=== PATIENT | male | born 1975 | race Hispanic/Latino ===

== ENCOUNTER 2022-03-26 13:33 | Observation (INO) | payer OTHER, SELFPAY ==
[2022-03-26] VITALS (26 sets, daily range): BP systolic 134–185; BP diastolic 76–110; PULSE 68–97; RESP 16–31; TEMP 36.3–36.6; O2SAT 93–100; BMI 38.2
--- NOTE | ~2022-03-26 | CT_ITS ---
EXAMINATION: CTA brain carotid DATE: 03/26/2022 14:56 INDICATION: Dizziness. Dysphagia. TECHNIQUE: Computed tomographic angiography (CTA) of the head was performed without and with 100 mL O mnipaque-350 intravenous contrast. CTA of the neck was performed with intravenous contrast. Automated exposure control and iterative reconstruction technique were employed. The dose-length product was 1 827.21 mGy-cm. Maximum intensity projection and volume rendered 3D-reconstructions were created by teresa alfaro technologist on a separate workstation. COMPARISON: None. FINDINGS: HEAD CTA: There is no intracranial hemorrhage, acute infarction, or abnormal intracranial mass lesion . The ventricles are normal in size. The orbits are normal. The paranasal sinuses are clear. The mast oid air cells are normal. Left vertebral artery is dominant. There is no significant stenosis of basi lar artery or the posterior cerebral arteries. There is no significant stenosis of the intracranial i nternal carotid arteries or anterior or middle cerebral arteries. Anterior communicating artery is no rmal. Posterior communicating arteries are not identified. There is no aneurysm. NECK CTA: There is no significant stenosis of the vertebral arteries. There is mild plaque in the pro ximal internal carotid arteries. There is 0% stenosis of the proximal right internal carotid artery r elative to normal distal artery lumen diameter (NASCET criteria). There is 0% stenosis of the proxima l left internal carotid artery relative to normal distal artery lumen diameter. There is mild cervica l spondylosis. IMPRESSION: 1. Normal brain. No aneurysm or significant intracranial arterial stenosis. 2. 0% stenosis of the proximal internal carotid arteries relative to normal distal artery lumen diame ters (NASCET criteria). Reviewed, dictated and finalized at location A. [facility] [facility] IMPRESSION: 1. Normal brain. No aneurysm or significant intracranial arterial stenosis. 2. 0% stenosis of the proximal internal carotid arteries relative to normal dis joellen artery lumen diameters (NASCET criteria).
--- NOTE | ~2022-03-26 | MR_ITS ---
MRI of the brain Clinical History: TIA Technique: Axial and sagittal T1-weighted images were acquired. These were followed by axial T2-weigh jose, diffusion weighted, gradient, and FLAIR images. Following intravenous administration of 20 cc Mu ltiHance gadolinium, T1-weighted fat-sat imaging was performed in the axial and coronal planes. Findings: No significant signal abnormality seen in the brain parenchyma. No acute infarct, intracran ial hemorrhage, or mass lesion. Ventricles and subarachnoid spaces are unremarkable. Orbits are unremarkable. Paranasal sinuses and m astoid air cells are clear. Major intracranial flow voids appear intact. Sagittal midline structures are intact. No abnormal postcontrast enhancement identified. IMPRESSION: Unremarkable exam. Reviewed, dictated and finalized at location M. [facility] IMPRESSION: Unremarkable exam.
--- NOTE | ~2022-03-26 | XR_ITS ---
EXAMINATION: XR chest 2V DATE: 03/26/2022 14:57 INDICATION: Shortness of breath and dizziness TECHNIQUE: PA and lateral views of the chest are obtained. COMPARISON: None available FINDINGS: There are minimal airspace opacities of the left lung base. No pleural effusion or pneumoth orax. The cardiomediastinal silhouette is normal. The visualized bones and soft tissues are unremarka ble. IMPRESSION: 1. Minimal left basilar airspace opacity, likely atelectasis. Reviewed, dictated and finalized at location B. Y TRUCK DRIVER
--- NOTE | 2022-03-26 13:41 | ECG_ITS ---
Measurements Intervals [place] Rate: 80 P: 31 WA: 163 QRS: -1 QRSD: 105 T: 13 QT: 376 QTc: 436 Interpretive Statements SINUS RHYTHM BASELINE ARTIFACT PRESENT NO PREVIOUS ECG AVAILABLE FOR COMPARISON Electronically Signed On 03-26-2022 15:08:03 CEMENT FINISHER HELPER by Maryjo Holman M.D.
[2022-03-26 14:07] LABS: Basophils Percent Auto 0.6 % (0.2-1.2); Eosinophils Absolute Auto 0.1 K/mm3 (0-0.3); Eosinophils Percent Auto 1.1 % (0-4.4); Hemoglobin 16.6 g/dL (14.0-18.0); Immature Granulocyte Absolute 0.01 K/mm3 (0.00-0.031); Immature Granulocyte Percent A 0.2 % (0-0.5); Lymphocytes Percent Auto 40.6 % (18.3-44.2); Mean Corpuscular HGB Conc 33.9 g/dl (32-36); Mean Corpuscular Hemoglobin 31.6 pg (26-34); Mean Corpuscular Volume 93.3 fl (80-100); Mean Platelet Volume 10.2 fl (7.4-10.4); Monocytes Absolute Auto 0.8 K/mm3 (0.1-0.6); Neutrophils Absolute Auto 2.9 K/mm3 (1.3-6.7); Neutrophils Percent Auto 45.5 % (45.5-73.1); Platelet Count Result 226 k/mm3 (150-375); Red Blood Count 5.25 M/mm3 (4.6-6.20); Red Cell Distribution Width 12.4 % (11.5-14.5); White Blood Count 6.4 K/mm3 (4.5-10.0)
[2022-03-26 14:17] LABS: Alanine Aminotransferase 111 U/L (6-50); Albumin Level 4.9 g/dL (3.5-5.1); Alkaline Phosphatase 77 U/L (38-126); Anion Gap 10 mmol/L (8-16); Aspartate Amino Transferase 79 U/L (17-59); Bilirubin,Total 1.1 mg/dL (0.2-1.3); Blood Urea Nitrogen 11 mg/dL (9-20); Calcium 9.4 mg/dL (8.4-10.2); Carbon Dioxide 22 mmol/L (22-30); Chloride 102 mmol/L (98-107); Estimated CRCL calculation 163 ml/min; Estimated Glomerular Filt Rate > 60; Glucose 106 mg/dL (65-110); Lipase 127 U/L (23-300); Potassium 3.6 mmol/L (3.4-5.0); Sodium 134 mmol/L (137-145)
[2022-03-26] MEDS: SODIUM CHLORIDE 0.9% IV 1,000 ML 999 ML IV CONT (14:22)
[2022-03-26] MEDS: ASPIRIN 81 MG CHEWABLE TABLET 324 MG PO (14:22)
[2022-03-26 14:29] LABS: Troponin I < 0.012 ng/mL (0.000-0.034)
[2022-03-26 14:30] LABS: Prothrombin Time 12.9 Seconds (11.1-14.7)
[2022-03-26 14:31] LABS: Partial Thromboplastin Time 30.4 SECONDS (22.3-36.8)
--- NOTE | 2022-03-26 14:37 | ED.GENADULT ---
HPI - General Adult General Chief complaint: Dizziness Stated complaint: dizzy/sob Time Seen by Provider: 03/26/22 13:54 History of Present Illness HPI narrative: This is a 46-year-old male presenting ED with a chief complaint of dizziness and shortness of breath. Patient stated that at 11:00 a.m. he started to experience a feeling of disequilibrium or loss of balance. He was at work when it happened. When he was trying to tell his boss he was having trouble finding words. He denies difficulty swallowing, loss of coordination or double vision. Denies numbness tingling weakness to any extremity. The symptoms have since resolved. However the patient also notes that he is having shortness of breath and has 3-4 word dyspnea. He denies chest pain, fever, chills, lower extremity edema, hx of blood clots. Related Data Home Medications Medication Instructions Recorded Confirmed atorvastatin 20 mg tablet mg 03/26/22 lisinopril 10 mg tablet mg 03/26/22 03/26/22 Allergies Allergy/AdvReac Type Severity Reaction Status Date / Time No Known Allergies Allergy Verified 03/26/22 14:12 Review of Systems Review of Systems: All systems reviewed & are unremarkable except as noted in HPI and below PMFSH Past Medical History Medical History (Updated 03/26/22 @ 17:54 by Jorge Ballard MD) High cholesterol Hypertension Social History Social History (Updated 03/26/22 @ 14:43 by Jorge Ballard MD) Social History: patient drinks alcohol and uses marijuana occasionally, denies tobacco use Exam Narrative: APPEARANCE: No apparent distress. Head: atraumatic. EYES: EOMI, pupils are lana NOSE: Atraumatic NECK: Trachea midline RESPIRATORY: No increased rate of breathing clear to auscultation bilaterally CARDIOVASCULAR: RRR, no peripheral edema ABDOMINAL: Non-distended MUSCULOSKELETAl: No obvious deformities NEURO: Alert. Cranial nerves 2-12 grossly intact. Sensation light touch, motor function cerebellar function intact for 4 extremities. Gait exam was normal. SKIN:: Warm, dry. Normal color PSYCHIATRIC: Normal affect Course Vital Signs Vital signs: Vital Signs Temperature 97.9 F 03/26/22 13:39 Pulse Rate 85 03/26/22 13:39 Respiratory Rate 16 03/26/22 13:39 Blood Pressure 185/103 H 03/26/22 13:39 Pulse Oximetry 100 03/26/22 13:39 Oxygen Delivery Room Air 03/26/22 13:39 Temperature 97.9 F 03/26/22 13:39 Pulse Rate 78 03/26/22 17:32 Respiratory Rate 21 H 03/26/22 17:31 Blood Pressure 145/91 H 03/26/22 17:31 Pulse Oximetry 96 03/26/22 17:31 Oxygen Delivery Room Air 03/26/22 13:39 Medical Decision Making [facility] Narrative Medical decision making narrative: -Presentation: this is a 46-year-old male presenting with disequilibrium, word-finding difficulty and shortness of breath. The patient's neurologic findings are concerning for TIA/CVA. is also having some dyspnea on exam. His lung sounds are clear. Have ordered a CTA of the neck and head which should show if there is any evidence of dissection. Will also get basic lab work, EKG, chest x-ray, BNP and troponins. -DDX includes but is not limited to: CVA/ TIA, vertebral artery stenosis/ dissection, heart failure, pneumonia, pulmonary embolism -Co-morbidities complicating care: hypertension, hyper cholesterolemia -External Chart Review: none -Hx from independent Sources: - [facility] - [phone] -Discussion of Management/Consultants: Koki GROUP LEADER-hospitalist, Neurology -Independent interpretation of studies: CTA of the brain carotid was negative for any findings. Laboratory studies were within normal limits. Viral swabs were negative Chest x-ray showed possible atelectasis. CBC was unremarkable. Metabolic panel is unremarkable. D-dimer was 0.44, troponin and BNPs were normal. -Procedures: none -Interventions: ASA 325 mg, 1 L NS. -Shared decision making / Disposition: upon re-evaluation
[2022-03-26 15:35] LABS: NT Pro B Type Natriuretic Pept < 20 pg/mL (19.9-100)
[2022-03-26 15:40] LABS: D Dimer 0.44 ug/mL (<0.48)
[2022-03-26 16:57] LABS: Influenza A QL RT-PCR Negative (Negative); Influenza B QL RT-PCR Negative (Negative); SARS-CoV-2 RNA PCR Negative
[2022-03-26 17:26] LABS: Troponin I < 0.012 ng/mL (0.000-0.034)
--- NOTE | 2022-03-26 18:09 | PM.IMHP ---
H&P: HPI History of Present Illness Date/Time: 03/26/22 18:09 Chief Complaint: Dizziness Narrative: This is a 46-year-old male patient has a history of hypertension hyperlipidemia. The patient came to the ER today with complaints of dizziness and shortness of breath. The patient started a keto diet within the last week and did not eat anything this morning. The patient stated at 11:00 a.m. he had a feeling of disequilibrium or loss of balance. The patient was at work when this happened. The patient was trying to tell his boss something but then he lost his words. The patient had no focal weakness or any facial droop. The symptoms have resolved since then. No focal weakness. The patient is now talking in full sentences. The chest x-ray was read as minimal left basilar airspace opacities likely atelectasis. Head neck CTA was read as normal brain no aneurysm or significant intracranial arterial stenosis. 0% stenosis of the proximal internal carotid arteries relative to normal distal arterial lumen diameters. The patient was given aspirin and IV fluids in the emergency room. The patient was found to be negative for influenza A/B and COVID. The patient is being admitted to observation status on the date of service of 03/26/2022 Review of Systems Review of Systems: See HPI All systems reviewed & are unremarkable except as noted in HPI and below Constitutional: Constitutional: Reports as per HPI and Reports no additional constitutional complaints Eyes: Eyes: Reports as per HPI and Reports no additional eye complaints ENT: Reports system reviewed and no additional complaints, except as documented and Reports Normal hearing present Cardiovascular: Cardiovascular: Reports no additional cardiovascular complaints Respiratory: Respiratory: Reports no additional respiratory complaints and Reports no additional respiratory complaints Gastrointestinal: Gastrointestinal: Reports as per HPI and Reports no additional gastrointestinal complaints Musculoskeletal: Musculoskeletal: Reports no additional musculoskeletal complaints Integumentary/Breasts: Skin/Breast: Reports system reviewed and no additional complaints, except as docu and Reports as per HPI Neurologic: Reports system reviewed and no additional complaints, except as documented, Reports as per HPI and Reports Normal hearing present Psychiatric: Psychiatric: Reports no additional psychiatric complaints and Reports as per HPI Endocrine: Endocrine: Reports no additional endocrine complaints Hematologic/Lymphatic: Hematologic/Lymphatic: Reports no additional hematologic/lymphatic complaints Allergic/Immunologic: Allergic/Immunologic: Reports no additional allergic/immunologic complaints [facility] Past Medical History Medical History High cholesterol Hypertension Surgical History Surgical History (Updated 03/26/22 @ 23:24 by Koki Lux NP) No pertinent past surgical history Family History Family History Mother Diabetes mellitus Father Hypertension Sibling Hyperlipidemia Social History Social History (Updated 03/26/22 @ 23:25 by Koki Lux NP) Social History: The patient drinks alcohol and uses marijuana occasionally. He Denies tobacco use currently but is a former smoker. He Lives with his . They have a 9 year old . The patient works for [employer]. Code status full code Smoking packs per day: 1 Smoking cigarettes per day: 20.0 Years smoked: 5 Smoking pack-years: 5.00 Smoking status: Former smoker Tobacco type: cigarettes Second hand tobacco smoke exposure: Yes Alcohol intake: current Drinks per week: 7 Substance use: never Lack of Transportation: No Lack of Food: Never True Current Housing: I Have Housing Concerned About Future Housing: No Difficulty Paying Gas/Electric Bills: No Difficulty Paying f
--- NOTE | 2022-03-26 19:57 | ADMGEN ---
This patient, Alex Gray, was admitted to Medical Room 243-. Patient/family oriented to hospital policies and general routines including ID bracelet, bed and alarms, visiting hours, pain management, procedures, bathroom and other care routines, personal items, smoking policy, room service/diet, and visiting hours. Information on how to activate the Rapid Response Team has been discussed. Patient/Family are encouraged to report perceived risks to care and to ask questions if they do not understand what they are told or what they should do.
[2022-03-26 20:22] LABS: Troponin I < 0.012 ng/mL (0.000-0.034)
[2022-03-26] MEDS: LACTATED RINGERS 1,000 ML 125 ML IV CONT (22:21)
--- NOTE | 2022-03-27 | ECHO_ITS ---
Patient Info Name: Alex Gray Age: 46 years : 1975 Gender: Male Ht: 73 in Wt: 284 lbs BSA: 2.62 m2 HR: 64 bpm BP: 134 / 76 mmHg Technical Quality: Good Exam Date: 03/27/2022 9:54 AM Exam Location: [facility] Patient Status: Outpatient Admit Date: 03/26/2022 Staff Ordering Physician: Koki Lux NP Home Health Physical Therapist: Donal Dean RDCS, RT Attending Provider: Shlomo Wright MD Referring Physician: Maci STEARNS; Exam Type: CA echo dop bubble study w con Study Info Indications G45.8 - Other transient cerebral ischemic attacks and related syndromes R06.02 - Shortness of breath Complete two-dimensional, color flow and Doppler transthoracic echocardiogram is performed with contrast to opacify the left ventricle and to improve the deliniation of the left ventricle endocardial borders. Strain analysis performed. Summary 1. Left ventricular chamber dimension is normal. 2. Left ventricular systolic function is normal, estimated at 60-65%. 3. There is mildly increased left ventricular wall thickness. 4. E/e' 7 is not elevated. 5. Global longitudinal strain is abnormal at -14.6%. 6. There is trace tricuspid valve regurgitation. Left Ventricle Global longitudinal strain is abnormal at -14.6%. E/e' 7 is not elevated. Left ventricular chamber dimension is normal. Left ventricular systolic function is normal, estimated at 60-65%. There is mildly increased left ventricular wall thickness. Right Ventricle Right ventricular systolic function is normal and with normal TAPSE 2.5 cm. Right ventricular chamber dimension is normal. Left Atria Left atrial chamber dimension is normal. Right Atria Right atrial chamber dimension is normal. Atrial Septum Agitated saline injection with and without valsalva maneuver opacified right side cardiac chambers without obvious shunt to left side cardiac chambers. Intact interatrial septum visualized by 2D and agitated saline imaging. Aortic Valve The aortic valve is trileaflet. There is no aortic valve stenosis. There is no aortic valve regurgitation. Pulmonic Valve There is no pulmonic regurgitation. Mitral Valve There is no mitral valve stenosis. There is trace mitral valve regurgitation. Tricuspid Valve There is trace tricuspid valve regurgitation. RVSP is not calculated due to an inadequate TR jet. Pericardium/Pleural There is no pericardial effusion. Inferior Vena Cava Normal inferior vena cava with >50% collapse upon inspiration consistent with normal right atrial pressure, 5 mmHg. Aorta The aortic root size at the sinus of Valsalva is normal. Left Ventricular Outflow Tract Name Value Normal LVOT 2D LVOT Diameter 2.2 cm LVOT Doppler LVOT Peak Gradient 4 mmHg LVOT Mean Gradient 2 mmHg LVOT VTI 20 cm LVOT VTI/AV VTI Ratio 0.8 LVOT Stroke Volume 77 ml LVOT CO 5.6 l/min LVOT CI 2.2 l/min/m2 Mitral Gita
[2022-03-27 05:25] LABS: Basophils Absolute Auto 0.1 K/mm3 (0.0-0.1); Basophils Percent Auto 0.9 % (0.2-1.2); Eosinophils Absolute Auto 0.3 K/mm3 (0-0.3); Eosinophils Percent Auto 3.6 % (0-4.4); Hematocrit 45.6 % (42.0-52.0); Hemoglobin 14.8 g/dL (14.0-18.0); Immature Granulocyte Absolute 0.02 K/mm3 (0.00-0.031); Immature Granulocyte Percent A 0.3 % (0-0.5); Lymphocytes Absolute Auto 2.99 K/mm3 (0.9-3.2); Lymphocytes Percent Auto 38.7 % (18.3-44.2); Mean Corpuscular HGB Conc 32.5 g/dl (32-36); Mean Corpuscular Hemoglobin 31.9 pg (26-34); Mean Corpuscular Volume 98.3 fl (80-100); Mean Platelet Volume 10.7 fl (7.4-10.4); Monocytes Absolute Auto 0.9 K/mm3 (0.1-0.6); Monocytes Percent Auto 11.1 % (2.6-8.5); Neutrophils Absolute Auto 3.5 K/mm3 (1.3-6.7); Neutrophils Percent Auto 45.4 % (45.5-73.1); Platelet Count Result 199 k/mm3 (150-375); Red Blood Count 4.64 M/mm3 (4.6-6.20); Red Cell Distribution Width 12.8 % (11.5-14.5); White Blood Count 7.7 K/mm3 (4.5-10.0)
[2022-03-27 05:42] LABS: Alanine Aminotransferase 86 U/L (6-50); Albumin Level 3.5 g/dL (3.5-5.1); Alkaline Phosphatase 62 U/L (38-126); Anion Gap 6 mmol/L (8-16); Aspartate Amino Transferase 55 U/L (17-59); Bilirubin,Total 0.6 mg/dL (0.2-1.3); Blood Urea Nitrogen 18 mg/dL (9-20); Calcium 8.5 mg/dL (8.4-10.2); Carbon Dioxide 25 mmol/L (22-30); Chloride 109 mmol/L (98-107); Estimated CRCL calculation 127 ml/min; Estimated Glomerular Filt Rate > 60; Glucose 100 mg/dL (65-110); Lactate Dehydrogenase 198 U/L (120-246); Sodium 140 mmol/L (137-145)
[2022-03-27 06:00] VITALS: BP 126/75; PULSE 62; RESP 18; TEMP 36.5; O2SAT 95
[2022-03-27] MEDS: LACTATED RINGERS 1,000 ML 125 ML IV CONT (06:23)
[2022-03-27] MEDS: ASPIRIN 81 MG ENTERIC TABLET PO (08:52)
[2022-03-27] MEDS: ATORVASTATIN 20 MG TABLET PO (08:53)
[2022-03-27] MEDS: lisinopriL 10 MG TABLET PO (08:53)
--- NOTE | 2022-03-27 09:33 | WPDNEURCNPN ---
Assessment and Plan Assessment and plan (1) Disequilibrium: Code(s): R42 - Dizziness and giddiness Status: Acute (2) Lightheadedness: Code(s): R42 - Dizziness and giddiness Status: Acute (3) High cholesterol: Code(s): E78.00 - Pure hypercholesterolemia, unspecified Status: Acute (4) Hypertension: Code(s): I10 - Essential (primary) hypertension Status: Acute Plan Alex Gray is a 46 year old male with a history of hypertension and hyperlipidemia presenting for evaluation of disequilibrium. MRI brain negative for central cause. Likely orthostatic intolerance vs presyncopael symptoms. Discussed importance of adequate hydration and nutrition to prevent future spells. - No further neurological work-up needed at this point Consult date: 03/27/22 Reason for consult: Disequilibrium HPI: Alex Gray is a 46 year old male with a history of hypertension and hyperlipidemia presenting for evaluation of disequilibrium. Patient presented to the emergency room yesterday after developing dizziness and shortness of breath at approximately 11AM. He described the sensation as feeling lightheaded. Patient was at work when this happened -- he works for [employer]. He was also having some word finding difficulty. He had several episodes lasting about one minute each. He reports symptoms came on when going from sitting to standing. Of note, patient recently started ketogenic diet and had not eaten anything that morning. He denied any other focal symptoms such as weakness, numbness, vision changes. His symptoms self-resolved and by the time he was in the emergency room, he was back to baseline. His CT head and CTA brain/carotid were unremarkable. His BP was initially in the 180s on presentation. MRI brain has been done which is negative as well. He feels much better today. Review of Systems Constitutional: Constitutional: Reports no additional constitutional complaints Eyes: Eyes: Reports no additional eye complaints ENT: Reports system reviewed and no additional complaints, except as documented Cardiovascular: Cardiovascular: Reports no additional cardiovascular complaints Respiratory: Respiratory: Reports dyspnea Gastrointestinal: Gastrointestinal: Reports no additional gastrointestinal complaints Genitourinary: Genitourinary: Reports no additional male genitourinary complaints Musculoskeletal: Musculoskeletal: Reports no additional musculoskeletal complaints Integumentary/Breasts: Skin/Breast: Reports system reviewed and no additional complaints, except as docu Neurologic: Reports as per HPI Psychiatric: Psychiatric: Reports no additional psychiatric complaints [facility] Past Medical History Medical History High cholesterol Hypertension Surgical History Surgical History No pertinent past surgical history Family History Family History Mother Diabetes mellitus Father Hypertension Sibling Hyperlipidemia Social History Social History Social History: The patient drinks alcohol and uses marijuana occasionally. He Denies tobacco use currently but is a former smoker. He Lives with his . They have a 9 year old . The patient works for [employer]. Code status full code Smoking packs per day: 1 Smoking cigarettes per day: 20.0 Years smoked: 5 Smoking pack-years: 5.00 Smoking status: Former smoker Tobacco type: cigarettes Second hand tobacco smoke exposure: Yes Alcohol intake: current Drinks per week: 7 Substance use: never Lack of Transportation: No Lack of Food: Never True Current Housing: I Have Housing Concerned About Future Housing: No Difficulty Paying Gas/Electric Bills: No Difficulty Paying for Meds: No Curre
--- NOTE | 2022-03-27 11:46 | PM.DS ---
DS: Admitting Diagnosis Discharge Date 03/27/22 Admitting Diagnosis Dizziness, shortness of breath DS: Discharge Diagnosis Discharge Diagnosis (1) Brain TIA: Code(s): G45.9 - Transient cerebral ischemic attack, unspecified Status: Acute Assessment and Plan: -neurology has been consulted -I will add aspirin to his medication regimen -CT the brain shows normal brain no aneurysms. -an MRI and echo normal -the patient is back to his baseline. -the patient is on a diet and had not eaten this morning. Now the patient is awake and talking and eating without difficulty. No shortness of breath. No difficulty speaking. -His blood pressure was also elevated. Perhaps the patient had hypertensive encephalopathy -discussed importance of blood pressure control -blood pressure stable -advise follow-up with primary care provider (2) High cholesterol: Code(s): E78.00 - Pure hypercholesterolemia, unspecified Status: Acute Assessment and Plan: -continue with atorvastatin (3) Hypertension: Code(s): I10 - Essential (primary) hypertension Status: Acute Assessment and Plan: -continue with lisinopril P.r.n. hydralazine DS: Summary Hospital Course Reason for hospitalization: Dizziness, shortness of breath Hospital Course: This is a 46-year-old male patient has a history of hypertension hyperlipidemia.? The patient came to the ER today with complaints of dizziness and shortness of breath.? Patient described dizziness as feeling faint. Patient recently started keto diet and has not been eating much. The patient had no focal weakness or any facial droop.? The symptoms have resolved since then.? No focal weakness.? CTA no acute intracranial process, 0% stenosis of internal carotid. MRI negative. Echocardiogram no acute concerns. Patient seen by Neurology and discharged from their services. Discussed adequate hydration and nutrition. Take medications as prescribed. Advised follow-up with PCP. Time Spent with Patient Time attestation: Total time spent providing and/or coordinating discharge services: Exam Narrative: GENERAL: Comfortable, no acute distress HENMT: moist mucous membranes EYES: EOM intact b/l NECK: no lymphadenopathy RESPIRATORY: clear to auscultation CARDIO: RRR GI: soft, nontender, bowel sounds present SKIN: no rashes EXTREMITIES: no edema, redness or tenderness DS: Data Data Completed and Pending Labs on day of discharge: Labs from last 24 hours 03/27/22 03/27/22 03/27/22 04:42 04:42 04:42 WBC 7.7 RBC 4.64 Hgb 14.8 Hct 45.6 MCV 98.3 D MCH 31.9 MCHC 32.5 RDW 12.8 Plt Count 199 MPV 10.7 H Immature Gran % (Auto) 0.3 Neut % (Auto) 45.4 L Lymph % (Auto) 38.7 Villalba % (Auto) 11.1 H Eos % (Auto) 3.6 Baso % (Auto) 0.9 Lymph # (Auto) 2.99 Villalba # (Auto) 0.9 H Eos # (Auto) 0.3 Baso # (Auto) 0.1 Abs Immat Gran (auto) 0.02 Absolute Neuts (auto) 3.5 Absolute Nucleated RBC 0.0 Nucleated RBC % 0.0 PT INR APTT D-Dimer Sodium 140 Potassium 4.0 Chloride 109 H Carbon Dioxide 25 Anion Gap 6 L BUN 18 Creatinine 0.90 Estim Creat Clear Calc 127 Estimated GFR > 60 Glucose 100 Calcium 8.5 Magnesium 2.0 Total Bilirubin 0.6 AST 55 ALT 86 H Alkaline Phosphatase 62 Lactate Dehydrogenase 198 Troponin I NT-Pro-B Natriuret Pep Total Protein 7.0 Albumin 3.5 Lipase TSH (Reflex) 2.080 Influenza A (RT-PCR) Influenza B (RT-PCR) SARS-CoV-2 RNA (RT-PCR) 03/26/22 03/26/22 03/26/22 19:51 16:53 16:14 WBC RBC Hgb Hct MCV MCH MCHC RDW Plt Count MPV Immature Gran % (Auto) Neut % (Auto) Lymph % (Auto) Villalba % (Auto) Eos % (Auto) Baso % (Auto) Lymph # (Auto) Villalba # (Auto) Eos # (Auto) Baso # (Auto) Abs Immat Gran (auto) Abso
== END 2022-03-27 13:30 | disposition home or self-care (01) ==
LOC: ANHED 17:54 → ANH2MED 18:45
PROVIDERS: Emergency Medicine; Nurse Practitioner; Admitting Provider Internal Medicine; Emergency Provider Emergency Medicine; Visit Provider Internal Medicine
DX: G45.9 Transient cerebral ischemic attack, unspecified (principal); E78.00 Pure hypercholesterolemia, unspecified; I10 Essential (primary) hypertension; R06.02 Shortness of breath; F10.90 Alcohol use, unspecified, uncomplicated; F12.90 Cannabis use, unspecified, uncomplicated; Z20.822 Contact with and (suspected) exposure to COVID-19; Z87.891 Personal history of nicotine dependence; Z79.899 Other long term (current) drug therapy; Z82.49 Family history of ischemic heart disease and other diseases of the circulatory system; Z83.438 Family history of other disorder of lipoprotein metabolism and other lipidemia
CPT/HCPCS: 36415; 70496; 70498; 70553; 71046; 80053; 83615; 83690; 83735; 83880; 84443; 84484; 85025; 85380; 85610; 85730; 87636; 93005; 96360; 96361; 96375; 99285; A9270; A9577; C8929; G0378; J7030; J7120; Q9967

== ENCOUNTER 2022-06-20 10:17 | Emergency (ER) | payer OTHER, SELFPAY ==
[2022-06-20] VITALS (9 sets, daily range): BP systolic 138–166; BP diastolic 81–109; PULSE 60–78; RESP 16–18; TEMP 36.3–36.4; O2SAT 95–100
--- NOTE | 2022-06-20 10:22 | ECG_ITS ---
Measurements Intervals [place] Rate: 72 P: MT: 0 QRS: 6 QRSD: 103 T: 24 QT: 387 QTc: 425 Interpretive Statements SUSPECT SINUS RHYTHM, BASELINE ARTIFACT LIMITS INTERPRETATION ATYPICAL ECG COMPARED TO ECG 03/26/2022 13:43:56 BASELINE ARTIFACT PRESENT Electronically Signed On 06-20-2022 11:07:19 CDT by Maryjo Holman M.D.
[2022-06-20 10:45] LABS: Basophils Absolute Auto 0.1 K/mm3 (0.0-0.1); Basophils Percent Auto 0.7 % (0.2-1.2); Eosinophils Absolute Auto 0.2 K/mm3 (0-0.3); Hematocrit 47.3 % (42.0-52.0); Hemoglobin 15.5 g/dL (14.0-18.0); Immature Granulocyte Absolute 0.02 K/mm3 (0.00-0.031); Immature Granulocyte Percent A 0.3 % (0-0.5); Lymphocytes Absolute Auto 2.51 K/mm3 (0.9-3.2); Lymphocytes Percent Auto 36.1 % (18.3-44.2); Mean Corpuscular HGB Conc 32.8 g/dl (32-36); Mean Corpuscular Hemoglobin 30.8 pg (26-34); Mean Corpuscular Volume 93.8 fl (80-100); Mean Platelet Volume 10.3 fl (7.4-10.4); Monocytes Absolute Auto 0.7 K/mm3 (0.1-0.6); Monocytes Percent Auto 9.8 % (2.6-8.5); Neutrophils Absolute Auto 3.5 K/mm3 (1.3-6.7); Neutrophils Percent Auto 50.1 % (45.5-73.1); Platelet Count Result 207 k/mm3 (150-375); Red Blood Count 5.04 M/mm3 (4.6-6.20); Red Cell Distribution Width 13.2 % (11.5-14.5)
[2022-06-20 11:00] LABS: Alanine Aminotransferase 60 U/L (6-50); Albumin Level 4.6 g/dL (3.5-5.1); Alkaline Phosphatase 76 U/L (38-126); Anion Gap 8 mmol/L (8-16); Aspartate Amino Transferase 44 U/L (17-59); Blood Urea Nitrogen 13 mg/dL (9-20); Calcium 8.9 mg/dL (8.4-10.2); Carbon Dioxide 24 mmol/L (22-30); Chloride 105 mmol/L (98-107); Estimated CRCL calculation 188 ml/min; Estimated Glomerular Filt Rate > 60; Glucose 110 mg/dL (65-110); Potassium 3.6 mmol/L (3.4-5.0); Sodium 137 mmol/L (137-145)
[2022-06-20] MEDS: SODIUM CHLORIDE 0.9% IV 1,000 ML 999 ML IV CONT (12:43)
--- NOTE | 2022-06-20 14:14 | ED.GENADULT ---
HPI - General Adult General Chief complaint: Dizziness Stated complaint: dizzy, lightheaded Time Seen by Provider: 06/20/22 11:58 History of Present Illness HPI narrative: Patient is a 46-year-old male who presents ER with an episode of dizziness. Occurred about an hour prior to arrival. Was at work he went from sitting to standing when he got a little lightheaded and fell to the side hitting his head on the wall. No LOC. No focal weakness or numbness in arm or leg. No slurred speech. Symptoms resolved at this time. Reports she has not had anything to eat or drink today. He has been doing intermittent fasting. He also reports for the last 2 days has had disruption of his sleep cycle due to work. No chest pain or chest pressure. No racing of the heart. No additional concerns. Related Data Home Medications Medication Instructions Recorded Confirmed atorvastatin 20 mg tablet 20 mg PO DAILY 03/26/22 03/26/22 lisinopril 10 mg tablet 20 mg PO DAILY 03/26/22 03/26/22 Allergies Allergy/AdvReac Type Severity Reaction Status Date / Time No Known Allergies Allergy Verified 06/20/22 10:48 Review of Systems Review of Systems: All systems reviewed & are unremarkable except as noted in HPI and below Constitutional: Constitutional: Denies chills, Denies fatigue and Denies fever(s) ENT: Denies nasal congestion and Denies sore throat Cardiovascular: Cardiovascular: Denies chest pain, Denies rapid heart rate and Denies radiating jaw, neck or arm pain Respiratory: Respiratory: Denies cough and Denies dyspnea Gastrointestinal: Gastrointestinal: Denies abdominal pain, Denies nausea and Denies vomiting Neurologic: Reports dizziness, Denies syncope, Denies headache(s), Denies focal weakness and Denies numbness [facility] Past Medical History Medical History High cholesterol Hypertension Surgical History Surgical History No pertinent past surgical history Family History Family History Mother Diabetes mellitus Father Hypertension Sibling Hyperlipidemia Social History Social History Social History: The patient drinks alcohol and uses marijuana occasionally. He Denies tobacco use currently but is a former smoker. He Lives with his . They have a 9 year old . The patient works for [employer]. Code status full code Smoking packs per day: 1 Smoking cigarettes per day: 20.0 Years smoked: 5 Smoking pack-years: 5.00 Smoking status: Former smoker Tobacco type: cigarettes Second hand tobacco smoke exposure: Yes Alcohol intake: current Drinks per week: 7 Substance use: never Lack of Transportation: No Lack of Food: Never True Current Housing: I Have Housing Concerned About Future Housing: No Difficulty Paying Gas/Electric Bills: No Difficulty Paying for Meds: No Currently Unemployed: No Education: Bachelor's Degree Difficulty w/ Childcare or Family Care: No Spiritual care concerns: No Exam Narrative: GENERAL: Well-appearing, well-nourished, and in no acute distress. HEAD: Normocephalic, atraumatic. EYES: PERRL and EOMI. ENT: Mucous membranes moist. TMs normal bilaterally. CHEST: Clear to auscultation. No respiratory distress. HEART: Regular rate and rhythm. Normal peripheral pulses. ABDOMEN: Soft, nontender, nondistended. EXTREMITIES: Normal range of motion. No edema. SKIN: Warm, dry, no rash. NEURO: Clear speech, no facial droop. Normal strength in arms and legs. Alert and oriented x3.. Course Course Emergency Course: Feels improved with fluids. Labs unremarkable and discussed with patient. [place] appropriate for discharge home. Sounds like nurse pain could be possibly related to lifestyle changes. No focal neural deficits. Vital Signs Vital sig
== END 2022-06-20 14:25 | disposition home or self-care (01) ==
PROVIDERS: Emergency Medicine; Emergency Provider Emergency Medicine
DX: R42 Dizziness and giddiness (principal); I10 Essential (primary) hypertension; Z87.891 Personal history of nicotine dependence
CPT/HCPCS: 36415; 80053; 85025; 93005; 96360; 99284; J7030